=== PATIENT | female | born 1995 | race Caucasian/White ===

== ENCOUNTER 2021-08-03 14:42 | Emergency (ER) | END 2021-08-03 16:11 | disposition left against medical advice (07) | LOC: COL.ER 14:42 | DX: R69 Illness, unspecified (principal) ==

== ENCOUNTER 2021-08-05 15:32 | Emergency (ER) | payer OTHER ==
[~2021-08-05] VITALS: Ht 162.6 cm; Wt 71.4 kg
[2021-08-05 15:45] VITALS: BP 104/61; PULSE 71; TEMP 98.2
[2021-08-05 16:01] LABS: COLLECTION METHOD CLEAN CATCH
[2021-08-05 16:06] LABS: MUCOUS Present (NOT PRESENT); PH 6 (5-8); URINE APPEARANCE Clear (CLEAR/HAZY); URINE BACTERIA None Seen /hpf (NONE SEEN); URINE BILIRUBIN Negative (NEGATIVE); URINE BLOOD Negative (NEGATIVE); URINE COLOR Yellow (YELLOW); URINE GLUCOSE Negative (NEGATIVE); URINE KETONE Negative (NEGATIVE); URINE LEUKOCYTE ESTERASE Negative (NEGATIVE); URINE NITRATE Negative (NEGATIVE); URINE PROTEIN(semi-quant) Negative (NEGATIVE); URINE RBC 0-2 /hpf (0-2); URINE UROBILINOGEN Negative (NEGATIVE)
[2021-08-05] MEDS ORDERED: ULTRAM 50MG TAB50 MG PO (16:36)
== END 2021-08-05 16:57 | disposition home or self-care (01) ==
LOC: COL.ER 15:32
PROVIDERS: Student in an Organized Health Care Education/Training Program
DX: N83.202 Unspecified ovarian cyst, left side (principal); Z90.712 Acquired absence of cervix with remaining uterus

== ENCOUNTER 2021-08-16 16:26 | Emergency (ER) | payer OTHER ==
[~2021-08-16] VITALS: Ht 162.6 cm; Wt 70.9 kg
[~2021-08-16 16:26] MED LIST: ULTRAM 50MG TAB50 MG PO
[2021-08-16 17:03] VITALS: TEMP 98
[2021-08-16] MEDS ORDERED: ZOFRAN ODT4 MG PO (18:02)
[2021-08-16] MEDS ORDERED: ULTRAM 50MG TAB50 MG PO (18:02)
[2021-08-16 18:15] VITALS: BP 132/70; PULSE 62
== END 2021-08-16 18:15 | disposition home or self-care (01) ==
LOC: COL.ER 16:26
DX: N83.202 Unspecified ovarian cyst, left side (principal); Z87.42 Personal history of other diseases of the female genital tract

== ENCOUNTER 2021-09-02 12:11 | Emergency (ER) | payer OTHER ==
[~2021-09-02] VITALS: Ht 162.6 cm; Wt 70.0 kg
[~2021-09-02 12:11] MED LIST changes: +ZOFRAN ODT4 MG PO
[2021-09-02 12:20] VITALS: TEMP 98.1
[2021-09-02 13:53] VITALS: BP 116/74; PULSE 60
== END 2021-09-02 14:01 | disposition home or self-care (01) ==
LOC: COL.ER 12:11
DX: R10.32 Left lower quadrant pain (principal)

== ENCOUNTER 2021-09-25 16:31 | Emergency (ER) | payer OTHER ==
[~2021-09-25] VITALS: Ht 162.6 cm; Wt 70.9 kg
[2021-09-25 17:14] VITALS: BP 127/93; PULSE 65; TEMP 98.6
[2021-09-25 18:13] LABS: COLLECTION METHOD CLEAN CATCH
[2021-09-25 18:17] LABS: BASO % 0.3 % (0.0-2.0); EOS # 0.1 K/mm3 (0.0-0.7); EOS % 1.4 % (0.0-4.0); GRAN # 5.6 K/mm3 (1.4-6.5); GRAN % 70.2 % (42.2-75.2); HEMATOCRIT 39.3 % (37.0-47.0); HEMOGLOBIN 13.1 g/dl (12.5-16.0); LYMPH # 1.7 K/mm3 (1.2-3.4); LYMPH % 21.2 % (20.0-51.0); MEAN CELL VOLUME 90 fl (80.0-100.0); MEAN CORPUSCULAR HEMOGLOBIN 30 pg (27-31); MEAN CORPUSCULAR HGB CONC 33 g/dl (33.0-37.0); MEAN PLATELET VOLUME 10.7 fl (7.4-10.4); MONO # 0.5 K/mm3 (0.1-0.6); MONO % 6.6 % (1.7-9.3); PLATELET COUNT 308 K/mm3 (130-400); RED BLOOD COUNT 4.39 M/mm3 (4.10-5.30)
[2021-09-25 18:20] LABS: MUCOUS Present (NOT PRESENT); PH 6 (5-8); SQUAMOUS EPITHELIAL 0-2 /hpf (0-10); URINE APPEARANCE Clear (CLEAR/HAZY); URINE BACTERIA None Seen /hpf (NONE SEEN); URINE BILIRUBIN Negative (NEGATIVE); URINE BLOOD Negative (NEGATIVE); URINE COLOR Yellow (YELLOW); URINE GLUCOSE Negative (NEGATIVE); URINE KETONE Negative (NEGATIVE); URINE LEUKOCYTE ESTERASE Negative (NEGATIVE); URINE NITRATE Negative (NEGATIVE); URINE PROTEIN(semi-quant) Negative (NEGATIVE); URINE RBC 0-2 /hpf (0-2); URINE UROBILINOGEN >=4.0 (NEGATIVE)
[2021-09-25 18:36] LABS: ALBUMIN 4.4 gm/dL (3.5-5.0); BILIRUBIN,TOTAL 0.5 mg/dL (0.2-1.2); CALCIUM 8.7 mg/dL (8.4-10.2); CREATININE, serum 0.73 mg/dL (0.57-1.11); POTASSIUM 3.7 mmol/L (3.5-4.5); TOTAL PROTEIN 7.8 gm/dL (6.2-8.1)
[2021-09-25] MEDS ORDERED: ULTRAM 50MG TAB50 MG PO (18:48)
== END 2021-09-25 19:10 | disposition home or self-care (01) ==
LOC: COL.ER 16:31
PROVIDERS: Physician Assistant
DX: R05.9 Cough, unspecified (principal)

== ENCOUNTER 2021-10-16 11:46 | Emergency (ER) | payer OTHER ==
[~2021-10-16] VITALS: Ht 162.6 cm; Wt 70.0 kg
[2021-10-16 12:02] VITALS: BP 112/67; TEMP 97.8
[2021-10-16 13:04] LABS: COLLECTION METHOD CLEAN CATCH
[2021-10-16 13:12] LABS: MUCOUS Present (NOT PRESENT); PH 6 (5-8); URINE APPEARANCE Hazy (CLEAR/HAZY); URINE BACTERIA Rare /hpf (NONE SEEN); URINE BILIRUBIN Negative (NEGATIVE); URINE BLOOD Negative (NEGATIVE); URINE COLOR Yellow (YELLOW); URINE GLUCOSE Negative (NEGATIVE); URINE KETONE Negative (NEGATIVE); URINE LEUKOCYTE ESTERASE Negative (NEGATIVE); URINE NITRATE Negative (NEGATIVE); URINE PROTEIN(semi-quant) Negative (NEGATIVE); URINE RBC 0-2 /hpf (0-2); URINE UROBILINOGEN Negative (NEGATIVE)
[2021-10-16 13:38] LABS: CALCIUM 8.7 mg/dL (8.4-10.2); CREATININE, serum 0.76 mg/dL (0.57-1.11); POTASSIUM 4.1 mmol/L (3.5-4.5)
[2021-10-16] MEDS ORDERED: NORCO 325 MG-51 TAB PO (14:46)
[2021-10-16 15:02] VITALS: PULSE 62
== END 2021-10-16 15:02 | disposition home or self-care (01) ==
LOC: COL.ER 11:46
PROVIDERS: Student in an Organized Health Care Education/Training Program
DX: N83.202 Unspecified ovarian cyst, left side (principal); Z90.710 Acquired absence of both cervix and uterus; Z90.721 Acquired absence of ovaries, unilateral; Z98.890 Other specified postprocedural states; Z32.02 Encounter for pregnancy test, result negative
CPT/HCPCS: Q9967

== ENCOUNTER 2021-10-30 18:02 | Emergency (ER) | payer OTHER ==
[~2021-10-30] VITALS: Ht 162.6 cm; Wt 70.9 kg
[~2021-10-30 18:02] MED LIST changes: +NORCO 325 MG-51 TAB PO
[2021-10-30 18:20] VITALS: TEMP 98.8
[2021-10-30] MEDS ORDERED: ULTRAM 50MG TAB50 MG PO (18:53)
[2021-10-30 18:55] VITALS: BP 101/67; PULSE 74
== END 2021-10-30 18:55 | disposition home or self-care (01) ==
LOC: COL.ER 18:02
DX: N83.202 Unspecified ovarian cyst, left side (principal); Z90.712 Acquired absence of cervix with remaining uterus; Z90.710 Acquired absence of both cervix and uterus; Z98.890 Other specified postprocedural states

== ENCOUNTER 2021-11-11 16:26 | Emergency (ER) | payer OTHER ==
[~2021-11-11] VITALS: Ht 162.6 cm; Wt 70.9 kg
[2021-11-11 16:45] VITALS: BP 109/60; PULSE 64; TEMP 98
[2021-11-11] MEDS ORDERED: PERCOCET 325 MG1 TA2 PO (17:55)
== END 2021-11-11 18:09 | disposition home or self-care (01) ==
LOC: COL.ER 16:26
DX: N83.202 Unspecified ovarian cyst, left side (principal); Z90.712 Acquired absence of cervix with remaining uterus; Z90.49 Acquired absence of other specified parts of digestive tract

== ENCOUNTER 2021-11-20 12:53 | Emergency (ER) | payer OTHER ==
[~2021-11-20] VITALS: Ht 162.6 cm; Wt 70.9 kg
[~2021-11-20 12:53] MED LIST changes: +PERCOCET 325 MG1 TA2 PO
[2021-11-20 12:57] VITALS: TEMP 98.1
[2021-11-20 13:26] LABS: COLLECTION METHOD CLEAN CATCH
[2021-11-20 13:31] LABS: MUCOUS Present (NOT PRESENT); PH 5 (5-8); URINE APPEARANCE Hazy (CLEAR/HAZY); URINE BACTERIA Rare /hpf (NONE SEEN); URINE BILIRUBIN Negative (NEGATIVE); URINE BLOOD Negative (NEGATIVE); URINE COLOR Yellow (YELLOW); URINE GLUCOSE Negative (NEGATIVE); URINE KETONE Negative (NEGATIVE); URINE LEUKOCYTE ESTERASE Negative (NEGATIVE); URINE NITRATE Negative (NEGATIVE); URINE PROTEIN(semi-quant) Negative (NEGATIVE); URINE RBC 0-2 /hpf (0-2); URINE UROBILINOGEN Negative (NEGATIVE)
[2021-11-20] MEDS ORDERED: NORCO 325 MG-51 TAB PO (13:36)
[2021-11-20 13:42] VITALS: BP 107/75; PULSE 75
== END 2021-11-20 13:43 | disposition home or self-care (01) ==
LOC: COL.ER 12:53
PROVIDERS: Physician Assistant
DX: G89.29 Other chronic pain (principal); R10.2 Pelvic and perineal pain; Z32.02 Encounter for pregnancy test, result negative

== ENCOUNTER 2021-11-28 14:56 | Emergency (ER) | payer OTHER ==
[~2021-11-28] VITALS: Ht 162.6 cm; Wt 70.9 kg
[2021-11-28 15:02] VITALS: TEMP 98.4
[2021-11-28 15:53] LABS: COLLECTION METHOD CLEAN CATCH
[2021-11-28 16:00] LABS: PH 7 (5-8); SQUAMOUS EPITHELIAL 0-2 /hpf (0-10); URINE APPEARANCE Clear (CLEAR/HAZY); URINE BACTERIA None Seen /hpf (NONE SEEN); URINE BILIRUBIN Negative (NEGATIVE); URINE BLOOD Negative (NEGATIVE); URINE COLOR Yellow (YELLOW); URINE GLUCOSE Negative (NEGATIVE); URINE KETONE Negative (NEGATIVE); URINE LEUKOCYTE ESTERASE Negative (NEGATIVE); URINE NITRATE Negative (NEGATIVE); URINE PROTEIN(semi-quant) Negative (NEGATIVE); URINE RBC None Seen /hpf (0-2); URINE UROBILINOGEN Negative (NEGATIVE)
[2021-11-28] MEDS ORDERED: NAPROSYN500 MG PO (16:05)
[2021-11-28] MEDS ORDERED: ZOFRAN 4MG T4 MG/TAB PO (16:05)
[2021-11-28] MEDS ORDERED: NORCO 325 MG-51 TAB PO (16:05)
[2021-11-28 16:16] VITALS: BP 118/83; PULSE 70
== END 2021-11-28 16:22 | disposition home or self-care (01) ==
LOC: COL.ER 14:56
PROVIDERS: Emergency Medicine
DX: R10.2 Pelvic and perineal pain (principal); Z32.02 Encounter for pregnancy test, result negative

== ENCOUNTER 2021-12-14 18:35 | Emergency (ER) | payer OTHER ==
[~2021-12-14] VITALS: Ht 162.6 cm; Wt 69.1 kg
[~2021-12-14 18:35] MED LIST changes: +NAPROSYN500 MG PO; +ZOFRAN 4MG T4 MG/TAB PO
[2021-12-14 18:47] VITALS: BP 107/68; TEMP 98.1
[2021-12-14 19:33] LABS: COLLECTION METHOD CLEAN CATCH
[2021-12-14 19:49] LABS: BASO % 0.3 % (0.0-2.0); EOS # 0.1 K/mm3 (0.0-0.7); EOS % 1.1 % (0.0-4.0); GRAN # 4.2 K/mm3 (1.4-6.5); GRAN % 64.4 % (42.2-75.2); HEMATOCRIT 38.8 % (37.0-47.0); HEMOGLOBIN 13.2 g/dl (12.5-16.0); LYMPH # 1.8 K/mm3 (1.2-3.4); LYMPH % 27.9 % (20.0-51.0); MEAN CELL VOLUME 90 fl (80.0-100.0); MEAN CORPUSCULAR HEMOGLOBIN 31 pg (27-31); MEAN CORPUSCULAR HGB CONC 34 g/dl (33.0-37.0); MEAN PLATELET VOLUME 10.9 fl (7.4-10.4); MONO # 0.4 K/mm3 (0.1-0.6); PLATELET COUNT 332 K/mm3 (130-400); RED BLOOD COUNT 4.32 M/mm3 (4.10-5.30); REDCELL DISTRIBUTION WIDTH-CV 12.1 % (11.5-14.5)
[2021-12-14 19:50] LABS: MUCOUS Present (NOT PRESENT); PH 7 (5-8); URINE APPEARANCE Clear (CLEAR/HAZY); URINE BACTERIA None Seen /hpf (NONE SEEN); URINE BILIRUBIN Negative (NEGATIVE); URINE BLOOD Negative (NEGATIVE); URINE COLOR Yellow (YELLOW); URINE GLUCOSE Negative (NEGATIVE); URINE KETONE 1+ (NEGATIVE); URINE LEUKOCYTE ESTERASE Negative (NEGATIVE); URINE NITRATE Negative (NEGATIVE); URINE PROTEIN(semi-quant) Negative (NEGATIVE); URINE RBC 0-2 /hpf (0-2); URINE UROBILINOGEN Negative (NEGATIVE)
[2021-12-14 20:03] LABS: ALBUMIN 4.4 gm/dL (3.5-5.0); BILIRUBIN,TOTAL 0.6 mg/dL (0.2-1.2); CALCIUM 8.6 mg/dL (8.4-10.2); CREATININE, serum 0.74 mg/dL (0.57-1.11); POTASSIUM 3.4 mmol/L (3.5-4.5); TOTAL PROTEIN 7.6 gm/dL (6.2-8.1)
[2021-12-14 21:23] VITALS: PULSE 68
[2022-01-02] MEDS ORDERED: ULTRAM 50MG TAB50 MG PO (17:57)
== END 2021-12-14 21:24 | disposition home or self-care (01) ==
LOC: COL.ER 18:35
PROVIDERS: Physician Assistant
DX: N83.202 Unspecified ovarian cyst, left side (principal); Z90.710 Acquired absence of both cervix and uterus; Z90.721 Acquired absence of ovaries, unilateral; Z98.890 Other specified postprocedural states; Z28.311 Partially vaccinated for COVID-19

== ENCOUNTER 2021-12-21 08:23 | Emergency (ER) | payer OTHER ==
[~2021-12-21] VITALS: Ht 162.6 cm; Wt 69.1 kg
[2021-12-21 08:40] VITALS: BP 120/73; PULSE 73; TEMP 98.3
[2021-12-21] MEDS ORDERED: NORTREL 35 MCG-1 TA1 PO (08:42)
[2021-12-21] MEDS ORDERED: ULTRAM 50MG TAB50 MG PO (08:49)
[2022-01-03] MEDS ORDERED: ULTRAM 50MG TAB50 MG PO (11:38)
== END 2021-12-21 09:02 | disposition home or self-care (01) ==
LOC: COL.ER 08:23
DX: N83.202 Unspecified ovarian cyst, left side (principal); Z90.710 Acquired absence of both cervix and uterus; Z90.721 Acquired absence of ovaries, unilateral; Z98.890 Other specified postprocedural states

== ENCOUNTER 2022-01-02 16:30 | Emergency (ER) | payer OTHER ==
[~2022-01-02] VITALS: Ht 162.6 cm; Wt 67.3 kg
[~2022-01-02 16:30] MED LIST changes: +NORTREL 35 MCG-1 TA1 PO
[2022-01-02 17:17] VITALS: BP 102/63; TEMP 98
[2022-01-02] MEDS ORDERED: ULTRAM 50MG TAB50 MG PO ×2 (17:57)
[2022-01-02 18:26] VITALS: PULSE 82
[2022-01-03] MEDS ORDERED: ULTRAM 50MG TAB50 MG PO (11:38)
== END 2022-01-02 18:26 | disposition home or self-care (01) ==
LOC: COL.ER 16:30
DX: R10.32 Left lower quadrant pain (principal); G89.29 Other chronic pain; Z90.721 Acquired absence of ovaries, unilateral; Z87.42 Personal history of other diseases of the female genital tract

== ENCOUNTER 2022-01-09 10:28 | Emergency (ER) | payer OTHER ==
[~2022-01-09] VITALS: Ht 162.6 cm; Wt 63.6 kg
[2022-01-09 10:35] VITALS: BP 102/78; PULSE 78; TEMP 98.6
== END 2022-01-09 11:40 | disposition home or self-care (01) ==
LOC: COL.ER 10:28
DX: R10.32 Left lower quadrant pain (principal); G89.29 Other chronic pain; Z90.710 Acquired absence of both cervix and uterus

== ENCOUNTER 2022-01-25 17:29 | Emergency (ER) | payer OTHER ==
[~2022-01-25] VITALS: Ht 162.6 cm; Wt 67.3 kg
[2022-01-25 17:46] VITALS: BP 134/80; PULSE 73; TEMP 98
== END 2022-01-25 18:48 | disposition home or self-care (01) ==
LOC: COL.ER 17:29
DX: R10.32 Left lower quadrant pain (principal); Z87.42 Personal history of other diseases of the female genital tract

== ENCOUNTER 2022-03-01 15:33 | Emergency (ER) | payer OTHER ==
[~2022-03-01] VITALS: Ht 162.6 cm; Wt 67.3 kg
[2022-03-01 15:40] VITALS: BP 108/74; TEMP 97.6
[2022-03-01 15:53] LABS: COLLECTION METHOD CLEAN CATCH
[2022-03-01 15:59] LABS: MUCOUS Present (NOT PRESENT); PH 5 (5-8); URINE APPEARANCE Clear (CLEAR/HAZY); URINE BACTERIA None Seen /hpf (NONE SEEN); URINE BLOOD Negative (NEGATIVE); URINE COLOR Yellow (YELLOW); URINE GLUCOSE Negative (NEGATIVE); URINE KETONE Negative (NEGATIVE); URINE NITRATE Negative (NEGATIVE); URINE PROTEIN(semi-quant) Negative (NEGATIVE); URINE RBC None Seen /hpf (0-2); URINE UROBILINOGEN Negative (NEGATIVE)
[2022-03-01] MEDS ORDERED: ULTRAM 50MG TAB50 MG PO (16:25)
[2022-03-01 16:38] VITALS: PULSE 60
== END 2022-03-01 16:36 | disposition home or self-care (01) ==
LOC: COL.ER 15:33
PROVIDERS: Emergency Medicine
DX: R10.32 Left lower quadrant pain (principal); Z87.42 Personal history of other diseases of the female genital tract; Z32.02 Encounter for pregnancy test, result negative

== ENCOUNTER 2022-03-10 20:12 | Emergency (ER) | payer OTHER ==
[~2022-03-10] VITALS: Ht 162.6 cm; Wt 67.3 kg
[2022-03-10 20:18] VITALS: TEMP 98.2
[2022-03-10 21:16] LABS: COLLECTION METHOD CLEAN CATCH
[2022-03-10 21:21] LABS: MUCOUS Present (NOT PRESENT); PH 8 (5-8); SQUAMOUS EPITHELIAL 0-2 /hpf (0-10); URINE APPEARANCE Clear (CLEAR/HAZY); URINE BACTERIA None Seen /hpf (NONE SEEN); URINE BLOOD Negative (NEGATIVE); URINE COLOR Yellow (YELLOW); URINE GLUCOSE Negative (NEGATIVE); URINE KETONE Negative (NEGATIVE); URINE NITRATE Negative (NEGATIVE); URINE PROTEIN(semi-quant) Negative (NEGATIVE); URINE RBC None Seen /hpf (0-2)
[2022-03-10] MEDS ORDERED: NAPROSYN500 MG PO (22:16)
[2022-03-10] MEDS ORDERED: PERCOCET 325 MG1 TA2 PO (22:24)
[2022-03-10 22:42] VITALS: BP 112/77; PULSE 80
== END 2022-03-10 22:42 | disposition home or self-care (01) ==
LOC: COL.ER 20:12
PROVIDERS: Emergency Medicine
DX: N83.202 Unspecified ovarian cyst, left side (principal); Z90.710 Acquired absence of both cervix and uterus

== ENCOUNTER 2022-03-14 17:10 | Emergency (ER) | payer OTHER ==
[~2022-03-14] VITALS: Ht 162.6 cm; Wt 66.4 kg
[2022-03-14 17:18] VITALS: BP 116/75; PULSE 77; TEMP 98.4
== END 2022-03-14 17:45 | disposition left against medical advice (07) ==
LOC: COL.ER 17:10
DX: R10.32 Left lower quadrant pain (principal)

== ENCOUNTER 2022-03-30 17:27 | Emergency (ER) | payer OTHER ==
[~2022-03-30] VITALS: Ht 162.6 cm; Wt 66.4 kg
[2022-03-30 17:31] VITALS: TEMP 98.7
[2022-03-30 18:18] VITALS: BP 115/82; PULSE 70
== END 2022-03-30 18:20 | disposition home or self-care (01) ==
LOC: COL.ER 17:27
DX: R10.9 Unspecified abdominal pain (principal); Z90.710 Acquired absence of both cervix and uterus; Z90.721 Acquired absence of ovaries, unilateral; Z98.890 Other specified postprocedural states

== ENCOUNTER 2022-04-11 11:42 | Emergency (ER) | payer OTHER ==
[~2022-04-11] VITALS: Ht 162.6 cm; Wt 66.4 kg
[2022-04-11 12:01] VITALS: TEMP 98.2
[2022-04-11 12:40] VITALS: BP 130/61; PULSE 80
== END 2022-04-11 12:50 | disposition home or self-care (01) ==
LOC: COL.ER 11:42
DX: G89.29 Other chronic pain (principal); R10.2 Pelvic and perineal pain

== ENCOUNTER 2023-05-31 09:15 | Emergency (ER) | payer OTHER ==
[~2023-05-31] VITALS: Ht 162.6 cm; Wt 72.7 kg
[2023-05-31 09:35] VITALS: TEMP 98
[2023-05-31 10:28] LABS: COLLECTION METHOD CLEAN CATCH
[2023-05-31 10:52] LABS: URINE APPEARANCE Cloudy (CLEAR/HAZY); URINE COLOR Yellow (YELLOW)
[2023-05-31 10:53] LABS: URINE BLOOD Negative (NEGATIVE); URINE GLUCOSE Negative (NEGATIVE); URINE KETONE TRACE (NEGATIVE); URINE NITRATE Negative (NEGATIVE); URINE PROTEIN(semi-quant) 1+ (NEGATIVE)
[2023-05-31 10:54] LABS: SQUAMOUS EPITHELIAL 20-50 /hpf (0-10)
[2023-05-31 10:55] LABS: MUCOUS Present (NOT PRESENT); URINE BACTERIA Many /hpf (NONE SEEN)
[2023-05-31 11:39] VITALS: BP 112/78; PULSE 59
[2023-05-31] MEDS ORDERED: NORCO 325 MG-51 TAB PO ×2 (12:23→12:24)
== END 2023-05-31 12:50 | disposition home or self-care (01) ==
LOC: COL.ER 09:15
PROVIDERS: Physician Assistant
DX: R10.2 Pelvic and perineal pain (principal); Z87.42 Personal history of other diseases of the female genital tract; Z79.891 Long term (current) use of opiate analgesic

== ENCOUNTER → 2023-08-09 | Outpatient (CLI) | payer OTHER | LOC: COL.RAD 12:07 | DX: R10.11 Right upper quadrant pain (principal) ==

== ENCOUNTER 2023-08-19 19:34 | Emergency (ER) | payer OTHER ==
[~2023-08-19] VITALS: Ht 162.6 cm; Wt 70.0 kg
[2023-08-19 19:39] VITALS: TEMP 99.2
[2023-08-19] MEDS ORDERED: NORCO 325 MG-51 TAB PO (19:56)
[2023-08-19 20:12] VITALS: BP 111/75; PULSE 88
[2023-08-19] MEDS ORDERED: Home HYDROcodone/Acetaminophen 5/325 MG #4 TABS/PACK PO ONE (20:15)
== END 2023-08-19 20:15 | disposition home or self-care (01) ==
LOC: COL.ER 19:34
DX: R10.32 Left lower quadrant pain (principal); Z90.49 Acquired absence of other specified parts of digestive tract

== ENCOUNTER 2023-08-25 10:46 | Emergency (ER) | payer OTHER ==
[~2023-08-25] VITALS: Ht 162.6 cm; Wt 70.0 kg
[2023-08-25 10:48] VITALS: TEMP 97.8
[2023-08-25 13:04] LABS: COLLECTION METHOD CLEAN CATCH
[2023-08-25 13:34] VITALS: BP 115/75; PULSE 68
[2023-08-25 13:47] LABS: URINE APPEARANCE Clear (CLEAR/HAZY); URINE BACTERIA Rare /hpf (NONE SEEN); URINE BLOOD Negative (NEGATIVE); URINE COLOR Yellow (YELLOW); URINE GLUCOSE Negative (NEGATIVE); URINE KETONE Negative (NEGATIVE); URINE NITRATE Negative (NEGATIVE); URINE PROTEIN(semi-quant) Negative (NEGATIVE); URINE UROBILINOGEN 0.2 E.U/dL (0.2-1.0)
[2023-08-25 13:48] LABS: SQUAMOUS EPITHELIAL 0-2 /hpf (0-10); URINE RBC 0-2 /hpf (0-2)
== END 2023-08-25 13:35 | disposition home or self-care (01) ==
LOC: COL.ER 10:46
PROVIDERS: Physician Assistant
DX: R10.2 Pelvic and perineal pain (principal); Z90.49 Acquired absence of other specified parts of digestive tract

== ENCOUNTER 2023-08-31 11:21 | Day surgery (SDC) | payer OTHER ==
[~2023-08-31] VITALS: Ht 162.6 cm; Wt 68.4 kg
[~2023-08-31 11:21] MED LIST changes: +LR 1,000 ML IV SCH; +Ondansetron 4 MG/2 ML VIAL IV PRN
[2023-08-31 12:06] VITALS: BP 110/74; PULSE 74; TEMP 98.2
[2023-08-31] MEDS ORDERED: Lidocaine PF 2% (20 MG/ML) 5 ML VIAL ONE (12:20)
[2023-08-31 13:00] VITALS: BP 109/78; PULSE 68; TEMP 97.7
--- NOTE | 2023-08-31 13:00 | NUR ---
The patient arrived back to [facility] from the endoscopy suite at this time. The patient appears drowsy but arouses easily to her name. The patient ambulated from the cart to the recliner in her room with the stand by assistance of two nurses and appeared to tolerate the activity well. Post procedure vital signs were started at this time. The patient's is at her bedside at this time. Warm blankets were provided, call light is within reach. The patient denies any further needs at this time.
[2023-08-31 13:14] VITALS: BP 111/81; PULSE 68
--- NOTE | 2023-08-31 13:14 | NUR ---
Dr. Vera has been in to speak with the patient and her regarding the findings of the procedures. Vital signs appear stable. remains at her bedside. The patient agrees to try some apple juice.
[2023-08-31 13:25] VITALS: BP 111/76; PULSE 59
--- NOTE | 2023-08-31 13:25 | NUR ---
Discharge instrucitons were reviewed with the patient and her at this time. They both verbalized understanding and have no questions for the nurse at this time. The patient's IV to her right hand was removed and a pressure dressing was applied to the site. The nurse instructed the patient to get dressed and notify the staff when she is ready to be escorted out.
--- NOTE | 2023-08-31 13:39 | NUR ---
The patient was escorted out via wheelchair to a private vehicle by KAYA Ascencio. The patient's belongings and discharge paperwork were sent with her. The patient's is present to drive her home.
== END 2023-08-31 13:40 | disposition home or self-care (01) ==
LOC: SDCO 11:21
DX: K29.80 Duodenitis without bleeding (principal); K31.89 Other diseases of stomach and duodenum; K63.89 Other specified diseases of intestine; R19.4 Change in bowel habit; R19.5 Other fecal abnormalities; R63.4 Abnormal weight loss; R19.7 Diarrhea, unspecified; R14.0 Abdominal distension (gaseous); R68.81 Early satiety; Z90.710 Acquired absence of both cervix and uterus; Z87.42 Personal history of other diseases of the female genital tract; Z80.0 Family history of malignant neoplasm of digestive organs
CPT/HCPCS: J2704; J7120